=== PATIENT | female | born 1990 | race Caucasian/White ===

== ENCOUNTER 2017-02-16 11:37 | Inpatient (IN) ==
--- NOTE | 2017-02-16 11:48 | Emergency Department Note ---
Disposition Clinical Impression: Depression, Acute anxiety, Suicidal ideation, Diabetes mellitus, UTI (urinary tract infection) Disposition: Admitted As Inpatient Referrals: NO,PCP [Primary Care Provider] - Forms: ED Satisfaction Letter General Adult HPI - General Chief complaint: ED Psychiatric Symptoms Stated complaint: SI Time Seen by Provider: 02/16/17 11:45 Source: patient Limitations: no limitations - History of Present Illness HPI Narrative: 26-year-old female reports emergency department complaining of anxiety, she states she has been anxious for several years but is now feeling suicidal. The patient denies any self-injurious behavior or overdose. She has a history of type 1 diabetes but does not have concerns regarding blood sugar being elevated. She has a history of DKA but does not feel ill at this time. The patient denies any chest pain or acute shortness of breath. She has chronic asthma. There is no history of cough coughing of blood like swelling or pain abdominal pain vomiting or diarrhea. She is not sure if she is or not. There is no history of fever headache neck stiffness rash convulsions or confusion. No problems walking talking hearing seeing or speaking. The patient has a long psychiatric history and reports things been getting worse over the last few weeks. No other acute complaints or concerns noted. Pain Scale: 6 - Related Data Home Medications Medication Instructions Recorded Confirmed Fexofenadine HCl 180 mg PO DAILY 06/12/15 02/16/17 Pantoprazole Sodium [Protonix] 40 mg PO BID 06/12/15 02/16/17 Topiramate [Topamax] 100 mg PO BID 06/12/15 02/16/17 Atorvastatin [Lipitor] 40 mg PO HS 02/16/17 02/16/17 Bifidobacterium Infantis [Align] 4 mg PO DAILY 02/16/17 02/16/17 Cholecalciferol (D-3) [Vitamin D] 1,000 unit PO DAILY 02/16/17 02/16/17 Clomipramine HCl 100 mg PO HS 02/16/17 02/16/17 FLUoxetine HCl [PROzac] 20 mg PO DAILY 02/16/17 02/16/17 Fluticasone Propionate Nasal 50 mcg NS DAILY 02/16/17 02/16/17 [Flonase] Fluticasone Propionate [Flovent 2 puff IH BID 02/16/17 02/16/17 Hfa] Furosemide [Lasix] 20 mg PO DAILY PRN 02/16/17 02/16/17 Gabapentin [Neurontin] 600 mg PO TID 02/16/17 02/16/17 Ketoconazole Shampoo [Nizoral 1 appl TP 2XW 02/16/17 02/16/17 Shampoo] LORazepam [Ativan] 1 mg PO HS PRN 02/16/17 02/16/17 Losartan [Cozaar] 25 mg PO DAILY 02/16/17 02/16/17 Montelukast [Singulair] 10 mg PO HS 02/16/17 02/16/17 Multivitamin [Multi-Day Vitamins] 1 each PO DAILY 02/16/17 02/16/17 Norgestimate-Ethinyl Estradiol 1 each PO DAILY 02/16/17 02/16/17 [Sprintec 28 Day Tablet] [place]-3/Dha/Epa/Fish Oil [Fish Oil 1,000 mg PO BID 02/16/17 02/16/17 1,000 mg Softgel] Ranitidine HCl [Zantac] 150 mg PO HS 02/16/17 02/16/17 Saline Nasal [place] [[place] Nasal 2 spray NS TID PRN 02/16/17 02/16/17 [place]] Sertraline [Zoloft] 200 mg PO DAILY 02/16/17 02/16/17 Subcutaneous Insulin Pump [T:Slim] 1 each MC AD PRN 02/16/17 02/16/17 Vitamin B Complex 1 each PO DAILY 02/16/17 02/16/17 hydrOXYzine HCl [Hydroxyzine HCl] 50 mg PO TID PRN 02/16/17 02/16/17 Allergies Allergy/AdvReac Type Severity Reaction Status Date / Time ceftriaxone [From Rocephin] Allergy Swelling Verified 02/16/17 11:42 of Lip/Tongue/Throat Sulfa (Sulfonamide Allergy Swelling Verified 02/16/17 11:42 Antibiotics) of Lip/Tongue/Throat All systems ED: reviewed and negative except as stated. Past Medical History - Past Medical History Medical history: Reports: asthma, diabetes, migraine Psychiatric history: Reports: anxiety, bipolar, depression, prior suicide attempt, previous psychiatric hospitalization, other - Social History Smoking Status: Never smoker Smokeless Tobacco Status: No Alcohol use: Reports: none Drug use: Reports: none Physical Exam - General Limitations: no limitations General appearance: alert, in no apparent distress - Head Head exam: atraumatic, normocephalic, normal inspection - Eye Eye exam: Present: normal appearance, PERRL, EOMI - ENT ENT exam: normal exam, normal oropharynx, mucous membranes moist, TM's normal bilaterally, normal external ear exam - Neck Neck exam: Present: normal inspection, full ROM, trachea midline. Absent: tenderness - Chest Chest inspection: Present: symmetric chest wall rise. Absent: tenderness - Respiratory Respiratory exam: Present: normal lung sounds bilaterally. Absent: respiratory distress, wheezes, stridor, accessory muscle use, prolonged expiratory phase - Cardiovascular Cardiovascular exam: Present: regular rate, normal rhythm, normal heart sounds - Abdominal Exam Abdominal exam: Present: soft, Non-Tender, normal bowel sounds. Absent: tenderness, distention, guarding, rebound, rigidity - Extremities Exam Extremities exam: Present: normal inspection, full ROM, normal capillary refill. Absent: tenderness, pedal edema, joint swelling, calf tenderness - Expanded Lower Extremity Exam Lower leg exam: Absent: Homans' sign Neurovascular/Tendon exam: Present: normal capillary refill. Absent: motor deficit, sensory deficit, tendon deficit, extremity cold to touch, pallor - Back Exam Back exam: Present: normal inspection, full ROM. Absent: tenderness, CVA tenderness (R), CVA tenderness (L), vertebral tenderness - Neurological Exam Neurological exam: Present: alert, oriented X3, CN II-XII intact. Absent: motor sensory deficit - Psychiatric Psychiatric exam: Present: normal affect, normal mood - Skin Skin exam: Present: warm, dry, intact, normal color. Absent: rash, cyanosis, diaphoresis, erythema, pallor, mottled Course Vital Signs Temperature 98.5 F 02/16/17 11:38 Pulse Rate 91 02/16/17 11:38 Respiratory Rate 18 02/16/17 11:38 Blood Pressure 155/92 02/16/17 11:38 O2 Sat by Pulse Oximetry 97 02/16/17 11:38 Temperature 98.5 F 02/16/17 11:38 Pulse Rate 91 02/16/17 11:38 Respiratory Rate 18 02/16/17 11:38 Blood Pressure 155/92 02/16/17 11:38 O2 Sat by Pulse Oximetry 97 02/16/17 11:38 Oxygen Delivery Oxygen Delivery Room Air Medical Decision Making - MDM Narrative Medical decision making narrative: The patient is diabetic her blood sugar is not markedly elevated she has an insulin pump. She has a UTI but is not symptomatic. Cipro was given by mouth. The patient appears to be medically stable and I do not feel the patient is at risk for eminent medical decline. She has been anxious and suicidal. The psychiatric counselors came and evaluated the patient and have recommended psychiatric admission. The patient is currently stable pending admission to the psychiatric service. - Lab Data Lab results reviewed: Yes I reviewed the patient's lab results. Result diagrams: 02/16/17 12:29 02/16/17 12:29 Lab Results 02/16/17 02/16/17 02/16/17 Range/Units 12:25 12:25 12:29 WBC 7.8 (4.3-11.1) K/mcL RBC 4.81 (3.82-4.97) M/mcL Hgb 12.1 (11.5-15.4) g/dL Hct 37.9 (35.3-44.9) % MCV 78.8 L (83.0-100.0) fL MCH 25.2 L (28.0-33.3) pg MCHC 31.9 (31.6-35.5) g/dL RDW 13.8 (11.5-14.5) % Plt Count 303 (140-400) K/mcL MPV 9.1 L (9.4-12.4) fL Immature Gran % 0.6 (0-4) % Seg Neutrophils % 63.1 % Lymphocytes % 27.5 % Monocytes % 5.9 % Eosinophils % 2.3 % Basophils % 0.6 % Neutrophils # 4.9 (1.6-8.9) K/mcL Lymphocytes # 2.2 (0.6-4.6) K/mcL Monocytes # 0.5 (0.0-1.3) K/mcL Eosinophils # 0.2 (0.0-0.6) K/mcL Basophils # 0.1 (0.0-0.2) K/mcL Sodium (136-145) mEq/L Potassium (3.5-4.5) mEq/L Chloride (98-109) mEq/L Carbon Dioxide (19-29) mEq/L BUN (7-20) mg/dL Creatinine (0.57-1.11) mg/dL Est GFR ( Amer) (> 60) Est GFR (Non-Af Amer) (> 60) BUN/Creatinine Ratio (6-26) Glucose (70-99) mg/dL Calculated Osmolality (280-300) Calcium (8.6-10.8) mg/dL Serum , Qual (Negative) Urine Color Yellow (Yellow) Urine Clarity Cloudy A (Clear) Urine pH 6.0 (5.0-8.0) pH Units Ur Specific [place] 1.025 (1.010-1.025) Urine Protein Negative (Neg-Trace) mg/dL Urine Glucose (UA) >=1000 H (Normal) mg/dL Urine Ketones Negative (Negative) mg/dL Urine Blood Negative (Negative) Urine Nitrite Negative (Negative) Urine Bilirubin Negative (Negative) Urine Urobilinogen Normal (Normal) mg/dL Ur Leukocyte Esterase Moderate H (Negative) Urine Microscopic RBC 0-3 (0-3) per hpf Urine Microscopic WBC 50-100 H (0-3) per hpf Ur Squamous Epith Cells Many H (None-Few) per lpf Urine Bacteria Many H (None-Few) per hpf Hyaline Casts Test Not Performed Salicylates (15-30) mg/dL Urine Opiates Screen Negative (Uxcikq=453) ng/mL Acetaminophen (10-30) mcg/mL Ur Barbiturates Screen Negative (Ljdhmj=538) ng/mL Ur Phencyclidine Scrn Negative (Cutoff=25) ng/mL Ur Amphetamines Screen Negative (Qzsafw=4351) ng/mL U Benzodiazepines Scrn Negative (Yomddu=667) ng/mL Urine Cocaine Screen Negative (Cutoff= 300) ng/mL U Marijuana (THC) Screen Negative (Cutoff = 50) ng/mL Ethyl Alcohol (0-10) mg/dL 02/16/17 02/16/17 Range/Units 12:29 12:29 WBC (4.3-11.1) K/mcL RBC (3.82-4.97) M/mcL Hgb (11.5-15.4) g/dL Hct (35.3-44.9) % MCV (83.0-100.0) fL MCH (28.0-33.3) pg MCHC (31.6-35.5) g/dL RDW (11.5-14.5) % Plt Count (140-400) K/mcL MPV (9.4-12.4) fL Immature Gran % (0-4) % Seg Neutrophils % % Lymphocytes % % Monocytes % % Eosinophils % % Basophils % % Neutrophils # (1.6-8.9) K/mcL Lymphocytes # (0.6-4.6) K/mcL Monocytes # (0.0-1.3) K/mcL Eosinophils # (0.0-0.6) K/mcL Basophils # (0.0-0.2) K/mcL Sodium 138 (136-145) mEq/L Potassium 4.0 (3.5-4.5) mEq/L Chloride 106 (98-109) mEq/L Carbon Dioxide 22 (19-29) mEq/L BUN 13 (7-20) mg/dL Creatinine 0.87 (0.57-1.11) mg/dL Est GFR ( Amer) > 60 (> 60) Est GFR (Non-Af Amer) > 60 (> 60) BUN/Creatinine Ratio 15 (6-26) Glucose 258 H (70-99) mg/dL Calculated Osmolality 295 (280-300) Calcium 9.5 (8.6-10.8) mg/dL Serum , Qual Negative (Negative) Urine Color (Yellow) Urine Clarity (Clear) Urine pH (5.0-8.0) pH Units Ur Specific [place] (1.010-1.025) Urine Protein (Neg-Trace) mg/dL Urine Glucose (UA) (Normal) mg/dL Urine Ketones (Negative) mg/dL Urine Blood (Negative) Urine Nitrite (Negative) Urine Bilirubin (Negative) Urine Urobilinogen (Normal) mg/dL Ur Leukocyte Esterase (Negative) Urine Microscopic RBC (0-3) per hpf Urine Microscopic WBC (0-3) per hpf Ur Squamous Epith Cells (None-Few) per lpf Urine Bacteria (None-Few) per hpf Hyaline Casts Salicylates < 5.0 L (15-30) mg/dL Urine Opiates Screen (Csxwjy=288) ng/mL Acetaminophen < 1.0 L (10-30) mcg/mL Ur Barbiturates Screen (Dwhhvj=464) ng/mL Ur Phencyclidine Scrn (Cutoff=25) ng/mL Ur Amphetamines Screen (Jbqcex=7022) ng/mL U Benzodiazepines Scrn (Kqyxlz=109) ng/mL Urine Cocaine Screen (Cutoff= 300) ng/mL U Marijuana (THC) Screen (Cutoff = 50) ng/mL Ethyl Alcohol < 10 (0-10) mg/dL
[2017-02-16 12:31] LABS: Bilirubin,Urine Negative (Negative); Blood,Urine Negative (Negative); Clarity,Urine Cloudy (Clear); Color,Urine Yellow (Yellow); Glucose,Urine (UA) >=1000 mg/dL (Normal); Ketones,Urine Negative (Negative); Leukocyte Esterase,Urine Moderate (Negative); Nitrite,Urine Negative (Negative); Protein,Urine Negative (Neg-Trace); Specific Gravity,Urine 1.025 (1.010-1.025); Urobilinogen,Urine Normal (Normal)
[2017-02-16 12:36] LABS: Amphetamine Screen,Urine Negative ng/mL (Cutoff=1000); Bacteria,Urine Many per hpf (None-Few); Barbiturate Screen,Urine Negative ng/mL (Cutoff=200); Benzodiazepines Screen,Urine Negative ng/mL (Cutoff=200); Cannabinoid Screen,Urine Negative ng/mL (Cutoff = 50); Cocaine Screen,Urine Negative ng/mL (Cutoff= 300); Opiate Screen,Urine Negative ng/mL (Cutoff=300); Phencyclidine Screen,Urine Negative ng/mL (Cutoff=25); Squamous Epithelial Cell,Urine Many per lpf (None-Few); WBC,Urine 50-100 per hpf (0-3)
[2017-02-16 12:53] LABS: Basophils # 0.1 K/mcL (0.0-0.2); Basophils % 0.6 %; Eosinophils # 0.2 K/mcL (0.0-0.6); Eosinophils % 2.3 %; Hematocrit 37.9 % (35.3-44.9); Hemoglobin 12.1 g/dL (11.5-15.4); Immature Granulocytes % 0.6 % (0-4); Lymphocytes # 2.2 K/mcL (0.6-4.6); Lymphocytes % 27.5 %; Mean Corpuscular HGB Conc 31.9 g/dL (31.6-35.5); Mean Corpuscular Hemoglobin 25.2 pg (28.0-33.3); Mean Corpuscular Volume 78.8 fL (83.0-100.0); Mean Platelet Volume 9.1 fL (9.4-12.4); Monocytes # 0.5 K/mcL (0.0-1.3); Monocytes % 5.9 %; Neutrophils # 4.9 K/mcL (1.6-8.9); Platelet Count 303 K/mcL (140-400); Red Blood Count 4.81 M/mcL (3.82-4.97); Red Cell Distribution Width 13.8 % (11.5-14.5); Segmented Neutrophils % 63.1 %
[2017-02-16 12:57] LABS: RBC,Urine 0-3 per hpf (0-3)
[2017-02-16 13:05] LABS: BUN/Creatinine Ratio 15 (6-26); Blood Urea Nitrogen 13 mg/dL (7-20); Calcium 9.5 mg/dL (8.6-10.8); Carbon Dioxide 22 mEq/L (19-29); Chloride 106 mEq/L (98-109); Glucose 258 mg/dL (70-99); Osmolality,Calculated 295 (280-300); Sodium 138 mEq/L (136-145); eGFR For African Americans > 60 (> 60); eGFR For Non-African Americans > 60 (> 60)
[2017-02-16 13:07] LABS: Acetaminophen < 1.0 mcg/mL (10-30); Ethanol < 10 mg/dL (0-10); Salicylate < 5.0 mg/dL (15-30)
[2017-02-16] MEDS ORDERED: *HR* LORazepam 1 MG TABLET PO ONE (14:07)
[2017-02-16] MEDS ORDERED: *HR* LORazepam 1 MG TABLET PO PRN ×2 (17:17→17:27)
[2017-02-16] MEDS ORDERED: Furosemide 20 MG TABLET PO PRN (17:17)
[2017-02-16] MEDS ORDERED: Saline Nasal Spray 44 ML BOTTLE NS PRN (17:17)
[2017-02-16] MEDS ORDERED: (Subcutaneous Insulin Pump [T:Slim] 1 EACH) MC PRN (17:17)
[2017-02-16] MEDS ORDERED: Acetaminophen 325 MG TABLET PO PRN (17:27)
[2017-02-16] MEDS ORDERED: hydrOXYzine pamoate 25 MG CAPSULE PO PRN (17:27)
[2017-02-16] MEDS ORDERED: Haloperidol Lactate 5 MG/ML VIAL IM PRN (17:27)
[2017-02-16] MEDS ORDERED: *HR* LORazepam 2 MG/ML VIAL IM PRN (17:27)
[2017-02-16] MEDS ORDERED: MOM Conc 10 ML UD.LIQ PO PRN (17:27)
[2017-02-16] MEDS ORDERED: Mag Hydrox/Al Hydrox/Simeth 30 ML UDC PO PRN (17:27)
[2017-02-16] MEDS: Famotidine 20 MG TABLET PO SCH (20:39)
[2017-02-16] MEDS: Topiramate 100 MG TABLET PO SCH (20:39)
[2017-02-16] MEDS: hydrOXYzine pamoate 25 MG CAPSULE PO PRN (20:39)
[2017-02-16] MEDS: Gabapentin 300 MG CAPSULE PO SCH (20:39)
[2017-02-16] MEDS ORDERED: NON-FORMULARY MEDICATION 1 EACH EACH (Fluticasone Propionate [Flovent Hfa] 2 PUFF) IH SCH (21:00)
[2017-02-16] MEDS ORDERED: traZODone 50 MG TABLET PO PRN (21:00)
[2017-02-16] MEDS: (Omega-3/Dha/Epa/Fish Oil [Fish Oil 1,000 Mg Softgel] PO SCH (21:38)
[2017-02-17] MEDS: Beclomethasone 40mcg MDI IH SCH ×3 (02:48→21:17)
[2017-02-17] MEDS ORDERED: (Bifidobacterium Infantis [Align] 4 MG) PO SCH (09:00)
[2017-02-17] MEDS ORDERED: (Norgestimate-Ethinyl Estradiol [Sprintec 28 Day Tabl) PO SCH (09:00)
[2017-02-17] MEDS: FLUoxetine 20 MG CAPSULE PO SCH (09:24)
[2017-02-17] MEDS: Loratadine 10 MG TABLET PO SCH (09:24)
[2017-02-17] MEDS: Topiramate 100 MG TABLET PO SCH ×2 (09:25→21:18)
[2017-02-17] MEDS: Multivit/Ca/Min/Fe/FA 1 TAB TABLET PO SCH (09:25)
[2017-02-17] MEDS: Vitamin B Complex/Vit C/Vit E 1 EACH TABLET PO SCH (09:25)
[2017-02-17] MEDS: Cholecalciferol (D-3) 1,000 UNIT TABLET PO SCH (09:25)
[2017-02-17] MEDS: Gabapentin 300 MG CAPSULE PO SCH ×3 (09:25→21:19)
[2017-02-17] MEDS: Fluticasone Propionate Nasal 50 MCG/SPRAY BOTTLE NS SCH (09:29)
[2017-02-17] MEDS: (Omega-3/Dha/Epa/Fish Oil [Fish Oil 1,000 Mg Softgel] PO SCH ×2 (09:35→21:23)
[2017-02-17] MEDS ORDERED: (Subcutaneous Insulin Pump [T:Slim] 1 EACH) MC PRN (11:50)
--- NOTE | 2017-02-17 14:23 | Psychiatry History & Physical ---
Date of Encounter: 02/17/17 Time of Encounter: 14:14 History of Present Illness Patient Stated Chief Complaint: suicidal ideation Medicare Admission Attestation: For traditional Medicare patients the provided hospital inpatient services are reasonable and necessary and in the case of services not specified as inpatient -only under 42 CFR 419.22 (n), that they are appropriately provided as inpatient services in accordance 42 CFR 412.3. For Critical Access Hospital the patient may reasonably be expected to be discharged or transferred to a hospital within 96 hours after admission to the Critical Access Hospital. Admitted From: Home Plans for Post Hospital Care: Home History of Present Illness: Ms. Akhtar is a 26 year old female who was admitted secondary to SI. Saw her outpatient psychiatrist yesterday and endorsed fleeting SI but was willing to contract for safety. Later in the day her SI intensified and she presented to the ER. Reports SI on a daily basis and claims chronic suicidality is her baseline. Feels acuity based on her surroundings/stressors. Will often enter a room and look for something to harm herself with. Considers this her norm. Has an insulin pump due to Type I DM but does not use this for self harm and has told staff here she will not use it for self harm. Already linked with providers. In addition she currently attends the [facility] Hospitalization Program. Likes the structure and struggles most on weekends when she does not go to the [facility]. Readily utilizes resources when she needs them. Will continue with plan of outpatient psychiatrist....plan discussed with patient yesterday at her appointment and again with this provider today. Currently cross titrating Zoloft and Prozac. Also takes Ativan prn. Doing well here. Seems to like the hospital setting. However, she has an outpatient appointment with Hematology tomorrow. Claims recent abnormalities with her CBC. If she is feeling stable she could likely be discharged to that appointment. May just need a brief mental health stay to address intensification of SI which will hopefully resolve quickly. Past Med Surg Social Fam HX - Past Medical History Medical history: arthritis, asthma, diabetes, migraine - Past Psychiatric History Psychiatric history: Reports: prior suicide attempt, previous psychiatric hospitalization Family psychiatric history: Unknown Family History of Suicide: Unknown - Social History Smoking Status: Never smoker Smokeless Tobacco Status: No Alcohol use: none Drug use: none - Family History Mother History Unknown: Yes Adopted: [place]: jo Age: 50 Family Member Ethnicity: Non- Living Status: Still Living Hx Family Cardiac Disorders: No Hx Family Respiratory Disorders: No Hx Family Cancer: Yes (breast cancer and lung cancer) Hx Family GI Disorders: Yes (Chron's multiple sx only 7 feet of intestine left) Hx Family Genitourinary Disorders: No Hx Family Endocrine Disorder: No Hx Family Musculoskeletal Disorders: Yes (Arthritis and hip replacement and foot surgery) Hx Family Neuromuscular Disorders: No Hx Family Neurologic Disorders: No Hx Family HEENT Disorders: No Hx Family Autoimmune Disorders: Yes Hx Family Reproductive Disorders: Yes (Hyst) Hx Family Psychosocial Disorders: No Hx Family Medical Disorders: No Medications & Allergies Fexofenadine HCl 180 mg PO DAILY 06/12/15 [History] Pantoprazole Sodium [Protonix] 40 mg PO BID 06/12/15 [History] Topiramate [Topamax] 100 mg PO BID 06/12/15 [History] Atorvastatin [Lipitor] 40 mg PO HS 02/16/17 [History] Bifidobacterium Infantis [Align] 4 mg PO DAILY 02/16/17 [History] Cholecalciferol (D-3) [Vitamin D] 1,000 unit PO DAILY 02/16/17 [History] Clomipramine HCl 100 mg PO HS 02/16/17 [History] FLUoxetine HCl [PROzac] 20 mg PO DAILY 02/16/17 [History] Fluticasone Propionate Nasal [Flonase] 50 mcg NS DAILY 02/16/17 [History] Fluticasone Propionate [Flovent Hfa] 2 puff IH BID 02/16/17 [History] Furosemide [Lasix] 20 mg PO DAILY PRN 02/16/17 [History] Gabapentin [Neurontin] 600 mg PO TID 02/16/17 [History] Ketoconazole Shampoo [Nizoral Shampoo] 1 appl TP 2XW 02/16/17 [History] LORazepam [Ativan] 1 mg PO HS PRN 02/16/17 [History] Losartan [Cozaar] 25 mg PO DAILY 02/16/17 [History] Montelukast [Singulair] 10 mg PO HS 02/16/17 [History] Multivitamin [Multi-Day Vitamins] 1 each PO DAILY 02/16/17 [History] Norgestimate-Ethinyl Estradiol [Sprintec 28 Day Tablet] 1 each PO DAILY [History] [place]-3/Dha/Epa/Fish Oil [Fish Oil 1,000 mg Softgel] 1,000 mg PO BID 02/16/17 [ History] Ranitidine HCl [Zantac] 150 mg PO HS 02/16/17 [History] Saline Nasal [place] [[place] Nasal [place]] 2 spray NS TID PRN 02/16/17 [History] Sertraline [Zoloft] 200 mg PO DAILY 02/16/17 [History] Subcutaneous Insulin Pump [T:Slim] 1 each MC AD PRN 02/16/17 [History] Vitamin B Complex 1 each PO DAILY 02/16/17 [History] hydrOXYzine HCl [Hydroxyzine HCl] 50 mg PO TID PRN 02/16/17 [History] Allergies ceftriaxone [From Rocephin] Allergy (Verified 02/16/17 11:42) Swelling of Lip/Tongue/Throat Sulfa (Sulfonamide Antibiotics) Allergy (Verified 02/16/17 11:42) Swelling of Lip/Tongue/Throat Review of Systems Constitutional: Denies: fever, chills, weakness, weight change Eyes: Denies: eye pain, vision change Ears, Nose, Throat: Denies: ear pain, throat pain, dental pain, hearing loss, congestion Cardiovascular: Denies: chest pain, palpitations, dyspnea on exertion Respiratory: Denies: cough, dyspnea, wheezes Gastrointestinal: Denies: abdominal pain, nausea, vomiting, diarrhea, constipation Genitourinary male: Denies: urgency, dysuria, frequency, genital lesions Genitourinary female: Denies: urgency, dysuria, frequency, abnormal menses, dyspareunia Musculoskeletal: Denies: joint swelling, joint pain Integumentary: Denies: rash, lesions, pruritus Neurological: Denies: headache, weakness, numbness, memory loss Endocrine: Denies: fatigue, heat or cold intolerance Hematologic/Lymphatic: Denies: easy bruising, lymphadenopathy Allergic/Immunologic: Denies: urticaria, itchy eyes Mental Status Exam Patient orientation: Yes Person, Yes Time, Yes Place Level of alertness: Alert Patient appearance: Appropriate Behavior: calm, cooperative Psychomotor activity: Normal Eye contact: Maintains Eye Contact Mood description: Depressed Affect description: full range Speech pattern: Normal rate, Normal rhythm, Normal tone Speech volume: Normal Thought process: Linear, Goal Oriented Thought content: Yes Suicidal ideation, No Homicidal ideation, No Overt delusions Perceptual disturbances: No Auditory hallucinations, No Visual hallucinations Attention span: Capable of Focused Attention Memory description: Grossly Intact Patient reliability: Reliable Historian Intelligence estimate: Average Judgment: Limited Insight: Partial Exam - HEENT Head exam IM: Present: atraumatic Eye exam IM: Present: EOMI ENT exam IM: Present: mucous membranes moist - Neurological Neurological exam IM: Present: alert - Respiratory Respiratory exam IM: Present: CTAB - GI/Abdominal GI/Abdominal exam IM: Present: normal bowel sounds - Extremities Extremities exam IM: Present: full ROM - Skin Skin exam IM: Present: intact Results - Vital Signs Vital signs: Temp Pulse Resp BP Pulse Ox 97.5 F L 103 16 135/92 97 02/17/17 08:57 02/17/17 08:57 02/17/17 08:57 02/17/17 08:57 02/16/17 11:38 - Labs Labs: Laboratory Last Values WBC 7.8 K/mcL (4.3-11.1) 02/16/17 12:29 RBC 4.81 M/mcL (3.82-4.97) 02/16/17 12:29 Hgb 12.1 g/dL (11.5-15.4) 02/16/17 12:29 Hct 37.9 % (35.3-44.9) 02/16/17 12:29 MCV 78.8 fL (83.0-100.0) L 02/16/17 12:29 MCH 25.2 pg (28.0-33.3) L 02/16/17 12:29 MCHC 31.9 g/dL (31.6-35.5) 02/16/17 12:29 RDW 13.8 % (11.5-14.5) 02/16/17 12:29 Plt Count 303 K/mcL (140-400) 02/16/17 12:29 MPV 9.1 fL (9.4-12.4) L 02/16/17 12:29 Immature Gran % 0.6 % (0-4) 02/16/17 12:29 Seg Neutrophils % 63.1 % 02/16/17 12:29 Lymphocytes % 27.5 % 02/16/17 12:29 Monocytes % 5.9 % 02/16/17 12:29 Eosinophils % 2.3 % 02/16/17 12:29 Basophils % 0.6 % 02/16/17 12:29 Neutrophils # 4.9 K/mcL (1.6-8.9) 02/16/17 12:29 Lymphocytes # 2.2 K/mcL (0.6-4.6) 02/16/17 12:29 Monocytes # 0.5 K/mcL (0.0-1.3) 02/16/17 12:29 Eosinophils # 0.2 K/mcL (0.0-0.6) 02/16/17 12:29 Basophils # 0.1 K/mcL (0.0-0.2) 02/16/17 12:29 Sodium 138 mEq/L (136-145) 02/16/17 12:29 Potassium 4.0 mEq/L (3.5-4.5) 02/16/17 12: Chloride 106 mEq/L (98-109) 02/16/17 12: Carbon Dioxide 22 mEq/L (19-29) 02/16/17 12:29 BUN 13 mg/dL (7-20) 02/16/17 12:29 Creatinine 0.87 mg/dL (0.57-1.11) 02/16/17 12:29 Est GFR ( Amer) > 60 (> 60) 02/16/17 12:29 Est GFR (Non-Af Amer) > 60 (> 60) 02/16/17 12:29 BUN/Creatinine Ratio 15 (6-26) 02/16/17 12:29 Glucose 258 mg/dL (70-99) H 02/16/17 12:29 POC Glucose 224 (58-89) H 02/17/17 06:04 Calculated Osmolality 295 (280-300) 02/16/17 12:29 Calcium 9.5 mg/dL (8.6-10.8) 02/16/17 12:29 Serum , Qual Negative (Negative) 02/16/17 12:29 Urine Color Yellow (Yellow) 02/16/17 12:25 Urine Clarity Cloudy (Clear) A 02/16/17 12:25 Urine pH 6.0 pH Units (5.0-8.0) 02/16/17 12:25 Ur Specific [place] 1.025 (1.010-1.025) 02/16/17 12:25 Urine Protein Negative mg/dL (Neg-Trace) 02/16/17 12:25 Urine Glucose (UA) >=1000 mg/dL (Normal) H 02/16/17 12:25 Urine Ketones Negative mg/dL (Negative) 02/16/17 12:25 Urine Blood Negative (Negative) 02/16/17 12:25 Urine Nitrite Negative (Negative) 02/16/17 12:25 Urine Bilirubin Negative (Negative) 02/16/17 12:25 Urine Urobilinogen Normal mg/dL (Normal) 02/16/17 12:25 Ur Leukocyte Esterase Moderate (Negative) H 02/16/17 12:25 Urine Microscopic RBC 0-3 per hpf (0-3) 02/16/17 12:25 Urine Microscopic WBC 50-100 per hpf (0-3) H 02/16/17 12:25 Ur Squamous Epith Cells Many per lpf (None-Few) H 02/16/17 12:25 Urine Bacteria Many per hpf (None-Few) H 02/16/17 12:25 Hyaline Casts Test Not Performed 02/16/17 12:25 Salicylates < 5.0 mg/dL (15-30) L 02/16/17 12:29 Urine Opiates Screen Negative ng/mL (Mhghxv=158) 02/16/17 12:25 Acetaminophen < 1.0 mcg/mL (10-30) L 02/16/17 12:29 Ur Barbiturates Screen Negative ng/mL (Rewgfd=937) 02/16/17 12:25 Ur Phencyclidine Scrn Negative ng/mL (Cutoff=25) 02/16/17 12:25 Ur Amphetamines Screen Negative ng/mL (Ttmfyi=5141) 02/16/17 12:25 U Benzodiazepines Scrn Negative ng/mL (Bqomer=894) 02/16/17 12:25 Urine Cocaine Screen Negative ng/mL (Cutoff= 300) 02/16/17 12:25 U Marijuana (THC) Screen Negative ng/mL (Cutoff = 50) 02/16/17 12:25 Ethyl Alcohol < 10 mg/dL (0-10) 02/16/17 12:29 Assessment and Plan (1) Depression Current visit: Yes Status: Acute Plan: Admit inpatient for safety and stabilization, Close observation, Suicide Precautions per unit protocol, Encourage participation in unit milieu, Group Therapy, Monitor sleep, Monitor appetite Risks, benefits, side effects, alternatives discussed w/pt: Yes Patient agreeable to treatment: Yes Plans for Post Hospital Care: Home Estimated Length of Stay (Days): 3 Qualifiers: Depression Type: major depressive disorder Major depression recurrence: recurrent Active/Remission status: currently active Major depression episode severity: severe Psychotic features: without psychotic features Qualified Code(s): F33.2 - Major depressive disorder, recurrent severe without psychotic features
[2017-02-17] MEDS: hydrOXYzine pamoate 25 MG CAPSULE PO PRN (21:18)
[2017-02-17] MEDS: Famotidine 20 MG TABLET PO SCH (21:18)
[2017-02-18] MEDS: Vitamin B Complex/Vit C/Vit E 1 EACH TABLET PO SCH (09:19)
[2017-02-18] MEDS: Topiramate 100 MG TABLET PO SCH ×2 (09:19→21:27)
[2017-02-18] MEDS: Multivit/Ca/Min/Fe/FA 1 TAB TABLET PO SCH (09:19)
[2017-02-18] MEDS: Cholecalciferol (D-3) 1,000 UNIT TABLET PO SCH (09:19)
[2017-02-18] MEDS: Gabapentin 300 MG CAPSULE PO SCH ×3 (09:20→21:27)
[2017-02-18] MEDS: FLUoxetine 20 MG CAPSULE PO SCH (09:20)
[2017-02-18] MEDS: Loratadine 10 MG TABLET PO SCH (09:20)
[2017-02-18] MEDS: Fluticasone Propionate Nasal 50 MCG/SPRAY BOTTLE NS SCH (09:27)
[2017-02-18] MEDS: (Norgestimate-Ethinyl Estradiol [Sprintec 28 Day Tabl) PO SCH (09:27)
[2017-02-18] MEDS: (Omega-3/Dha/Epa/Fish Oil [Fish Oil 1,000 Mg Softgel] PO SCH ×2 (09:27→21:32)
[2017-02-18] MEDS: (Bifidobacterium Infantis [Align] 4 MG) PO SCH (09:27)
[2017-02-18] MEDS: Beclomethasone 40mcg MDI IH SCH ×2 (09:35→21:33)
--- NOTE | 2017-02-18 12:31 | Psychiatry Progress Note ---
Date of Encounter: 02/18/17 Time of Encounter: 12:26 Subjective Interval history: Reports she is feeling better. No longer actively suicidal. However, still having intrusive thoughts of harming self. Worried if she went home she would act on them. Thinks she needs more time to ensure safety. Has an outpatient counseling appointment scheduled for Thursday. 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 Client agrees and wants to keep appointment. She did cancel her Hematology appointment for today even though she was advised against it. Seemed to have decided she needed/wanted another day in the hospital prior to talking with staff. Doing well on the unit. No behavior problems. No self harming attempts. Seems to like structured environment of inpatient setting. Will plan for one more night with anticipated discharge tomorrow. Review of Systems Constitutional: Denies: fever, chills, weakness, weight change Eyes: Denies: eye pain, vision change Ears, Nose, Throat: Denies: ear pain, throat pain, dental pain, hearing loss, congestion Cardiovascular: Denies: chest pain, palpitations, dyspnea on exertion Respiratory: Denies: cough, dyspnea, wheezes Gastrointestinal: Denies: abdominal pain, nausea, vomiting, diarrhea, constipation Musculoskeletal: Denies: joint swelling, joint pain Neurological: Denies: headache, weakness, numbness, memory loss Objective: Exam Patient orientation: Yes Person, Yes Time, Yes Place Level of alertness: Alert Patient appearance: Appropriate Behavior: calm, cooperative Psychomotor activity: Normal Eye contact: Maintains Eye Contact Mood description: Euthymic/stable Affect description: full range Speech pattern: Normal rate, Normal rhythm, Normal tone Speech volume: Normal Thought process: Linear, Goal Oriented Thought content: Yes Suicidal ideation, No Homicidal ideation, No Overt delusions Perceptual disturbances: No Auditory hallucinations, No Visual hallucinations Judgment: Limited Insight: Partial Results - Vital Signs Vital Signs: Temp Pulse Resp BP Pulse Ox 96.8 F L 111 20 157/103 97 02/18/17 09:00 02/18/17 09:00 02/18/17 09:00 02/18/17 09:00 02/16/17 11:38 - Labs Labs: Laboratory Results - last 24 hr 02/17/17 02/17/17 02/18/17 17:04 20:10 08:01 POC Glucose 131 H 154 H 336 H 02/18/17 11:26 POC Glucose 185 H Assessment and Plan (1) Depression Current visit: Yes Status: Acute Plan: Continue hospitalization, Close observation, Suicide Precautions per unit protocol, Encourage participation in unit milieu, Group Therapy, Monitor sleep, Monitor appetite Risks, benefits, side effects, alternatives discussed w/pt: Yes Patient agreeable to treatment: Yes Qualifiers: Depression Type: major depressive disorder Major depression recurrence: recurrent Active/Remission status: currently active Major depression episode severity: severe Psychotic features: without psychotic features Qualified Code(s): F33.2 - Major depressive disorder, recurrent severe without psychotic features Consult Discharge Plan - Plan Referrals: [facility] [Outside] - 03/11/17 11:40 am (The above appointment is with Dr. Sahu. You also will see her again on 05/01 at 10:20am. You may contact the office regularly to check for cancellations that would allow you to be seen sooner. ) [facility] [Outside] - 02/20/17 12:00 pm (The above appointment is with Angie Armenta for counseling. You will also resume PHP groups on discharge.)
[2017-02-18] MEDS: Famotidine 20 MG TABLET PO SCH (21:28)
[2017-02-19 08:47] VITALS: BP 141/97
[2017-02-19] MEDS: Gabapentin 300 MG CAPSULE PO SCH ×2 (08:52→15:23)
[2017-02-19] MEDS: Vitamin B Complex/Vit C/Vit E 1 EACH TABLET PO SCH (08:52)
[2017-02-19] MEDS: Multivit/Ca/Min/Fe/FA 1 TAB TABLET PO SCH (08:52)
[2017-02-19] MEDS: Loratadine 10 MG TABLET PO SCH (08:52)
[2017-02-19] MEDS: Cholecalciferol (D-3) 1,000 UNIT TABLET PO SCH (08:52)
[2017-02-19] MEDS: Fluticasone Propionate Nasal 50 MCG/SPRAY BOTTLE NS SCH (08:53)
[2017-02-19] MEDS: FLUoxetine 20 MG CAPSULE PO SCH (08:53)
[2017-02-19] MEDS: Topiramate 100 MG TABLET PO SCH (08:53)
[2017-02-19] MEDS: Beclomethasone 40mcg MDI IH SCH (08:53)
[2017-02-19] MEDS: (Bifidobacterium Infantis [Align] 4 MG) PO SCH (08:58)
[2017-02-19] MEDS: (Omega-3/Dha/Epa/Fish Oil [Fish Oil 1,000 Mg Softgel] PO SCH (08:58)
[2017-02-19] MEDS: (Norgestimate-Ethinyl Estradiol [Sprintec 28 Day Tabl) PO SCH (08:58)
[2017-02-19] MEDS ORDERED: Ketoconazole Shampoo 120 ML BOTTLE TP SCH (09:00)
--- NOTE | 2017-02-19 12:57 | Discharge Summary ---
Date of Encounter: 02/19/17 Time of Encounter: 12:54 Diagnosis - Discharge Diagnosis (1) Depression Status: Acute Qualifiers: Depression Type: major depressive disorder Major depression recurrence: recurrent Active/Remission status: currently active Major depression episode severity: severe Psychotic features: without psychotic features Qualified Code(s): F33.2 - Major depressive disorder, recurrent severe without psychotic features Medications - Discharge Medications Fexofenadine HCl 180 mg PO DAILY 06/12/15 [History] Pantoprazole Sodium [Protonix] 40 mg PO BID 06/12/15 [History] Topiramate [Topamax] 100 mg PO BID 06/12/15 [History] Atorvastatin [Lipitor] 40 mg PO HS 02/16/17 [History] Bifidobacterium Infantis [Align] 4 mg PO DAILY 02/16/17 [History] Cholecalciferol (D-3) [Vitamin D] 1,000 unit PO DAILY 02/16/17 [History] Clomipramine HCl 100 mg PO HS 02/16/17 [History] FLUoxetine HCl [Prozac] 20 mg PO DAILY 02/16/17 [History] Fluticasone Propionate Nasal [Flonase] 50 mcg NS DAILY 02/16/17 [History] Fluticasone Propionate [Flovent Hfa] 2 puff IH BID 02/16/17 [History] Furosemide [Lasix] 20 mg PO DAILY PRN 02/16/17 [History] Gabapentin [Neurontin] 600 mg PO TID 02/16/17 [History] Ketoconazole Shampoo [Nizoral Shampoo] 1 appl TP 2XW 02/16/17 [History] LORazepam [Ativan] 1 mg PO HS PRN 02/16/17 [History] Losartan [Cozaar] 25 mg PO DAILY 02/16/17 [History] Montelukast [Singulair] 10 mg PO HS 02/16/17 [History] Multivitamin [Multi-Day Vitamins] 1 each PO DAILY 02/16/17 [History] Norgestimate-Ethinyl Estradiol [Sprintec 28 Day Tablet] 1 each PO DAILY [History] [place]-3/Dha/Epa/Fish Oil [Fish Oil 1,000 mg Softgel] 1,000 mg PO BID 02/16/17 [ History] Ranitidine HCl [Zantac] 150 mg PO HS 02/16/17 [History] Saline Nasal [place] [[place] Nasal [place]] 2 spray NS TID PRN 02/16/17 [History] Sertraline [Zoloft] 200 mg PO DAILY 02/16/17 [History] Subcutaneous Insulin Pump [T:Slim] 1 each MC AD PRN 02/16/17 [History] Vitamin B Complex 1 each PO DAILY 02/16/17 [History] hydrOXYzine HCl [Hydroxyzine HCl] 50 mg PO TID PRN 02/16/17 [History] Beclomethasone Diprop 40mcg [QVAR 40 mcg] 2 puff IH BIDR puff 02/19/17 [Rx] Vitamin B Complex/Vit C/Vit E [Stresstab] 1 each PO DAILY tablet 02/19/17 [Rx] Allergies ceftriaxone [From Rocephin] Allergy (Verified 02/16/17 11:42) Swelling of Lip/Tongue/Throat Sulfa (Sulfonamide Antibiotics) Allergy (Verified 02/16/17 11:42) Swelling of Lip/Tongue/Throat Provider Date of admission: 02/16/17 16:52 Primary care physician: PCP NO Discharging clinician: Darlin Garcia Assessment and Plan - Patient/Caregiver Discharge Instructions Activity: resume usual activities as tolerated Diet: diabetic diet - Follow up Plan Follow up with: [facility] [Outside] - 03/11/17 11:40 am (The above appointment is with your psychiatrist, Dr. Sahu, who will continue to see you for psychiatric medication management. You are also scheduled to see her again on 05/01/2017 at 10:20am. ) [facility] [Outside] - 02/20/17 12:00 pm (The above appointment is with Angie Armenta for mental health counseling. You will also resume daily PHP groups on discharge to continue working on skill buidling.) Overall status at discharge: Stable Disposition: Home, Self-Care Hospital Course Hospital course: Ms. Akhtar is a 26 year old female who was admitted secondary to SI. She had just seen her outpatient psychiatrist on the morning of admission. At that time she was experiencing some intrusive thoughts but did not think she was at risk for self harm. Later in the day she presented to the ER after her thoughts intensified. A plan had already been put in place with her outpatient psychiatrist to start cross tapering Zoloft and Prozac and to start Ativan in the evenings as a prn. That plan was implemented on the inpatient unit. Client did well with the medication adjustment. She was bright and social with staff and peers. Her SI lessened and on the day of discharge she was only experiencing fleeting intrusive thoughts with no intent or plan to self harm. She had a counseling session scheduled for the day following her discharge. She canceled a Hematology appointment while inpatient and it was recommended that she reschedule it as soon as possible due to some recent abnormalities with her CBC. - Time Spent with Patient Total time spent providing and/or coordinating discharge services: Quality - Multiple Antipsychotics Patient discharged on 2 or more antipsychotic medications: No Procedures - Procedures Procedures: Medication Management, Crisis Stabilization, Supportive Therapy, Group Therapy Mental Status Exam - Mental Status Exam Patient orientation: Yes Person, Yes Time, Yes Place Level of alertness: Alert Patient appearance: Appropriate Behavior: calm, cooperative Psychomotor activity: Normal Eye contact: Maintains Eye Contact Mood description: Euthymic/stable Affect description: congruent with mood, full range Speech pattern: Normal rate, Normal rhythm, Normal tone Speech Volume: Normal Thought process: Linear, Goal Oriented Thought Content: No Suicidal ideation, No Homicidal ideation, No Overt delusions Perceptual Disturbances: No Auditory hallucinations, No Visual hallucinations Judgment: Fair Insight: Partial
== END 2017-02-19 15:33 | disposition home or self-care (01) | DRG 751 ==
LOC: EMEROO 11:37 → 1ANU 16:52
PROVIDERS: ADMIT Psychiatry & Neurology Psychiatry; ATTEND Psychiatry & Neurology Psychiatry